=== PATIENT | male | born 1965 | race Caucasian/White ===

== ENCOUNTER 2016-11-22 10:09 | Day surgery (SDC) | payer BC, OTHER ==
[~2016-11-22] VITALS: Ht 172.7 cm; Wt 99.3 kg
[~2016-11-22 10:09] MED LIST: ACET-76 PO; ACET325T14 PO; ALPR1TAB2 PO; ARIP2TAB PO; ASPI-515 PO; ATEN50TA41 PO; BACL-19 PO; BACL20TA PO; BISA10SU65 PR; BUPR150T20 PO; BUPR150T73 PO; BUSP10TA PO; CAL MAG ZINC PO; CHOL100011 PO; FURO-92 PO; GABA-826 PO; HYDR20TA PO; IBUP-1 PO; LURA20TA PO; MAG OX PO; OXYC-302 PO; OXYC10TA6 PO; OXYC1TAB9 PO; POLY17PO5 PO; POTA10TA5 PO; PREG75CA PO; SIMV40TA3 PO; TAMS-11 PO; TEMA30CA PO; TIZA4TAB PO; VENL75TA PO; VITAMIN B COMPLEX PO; ZOLP10TA PO; promethazine PO
[2016-11-22] MEDS ORDERED: LACTATED RINGERS 1,000 ML IV SCH (10:34)
[2016-11-22 11:01] VITALS: BP 98/65
[2016-11-22] MEDS ORDERED: FENTANYL PF 100 MCG/2ML ONE ×2 (12:57→14:26)
[2016-11-22] MEDS ORDERED: MIDAZOLAM 1 MG/ML, 2ML ONE (12:57)
[2016-11-22] MEDS ORDERED: PROPOFOL 10 MG/ML, 20ML ONE (13:10)
[2016-11-22] MEDS ORDERED: CEFAZOLIN 1,000 MG ONE (13:10)
[2016-11-22] MEDS ORDERED: DEXAMETHASONE 4 MG/ML, 1ML ONE (13:10)
[2016-11-22] MEDS ORDERED: ONDANSETRON 2MG/ML, 2ML ONE ×2 (13:10→14:16)
[2016-11-22] MEDS ORDERED: FENTANYL PF 100 MCG/2ML IV PRN (13:30)
[2016-11-22] MEDS ORDERED: OXYcodone 5 MG/5 ML ORAL.SOL UDC PO PRN (13:30)
[2016-11-22] MEDS ORDERED: hydrALAzine 20 MG/ML, 1ML IV PRN (13:30)
[2016-11-22] MEDS ORDERED: ACETAMINOPHEN 325 MG TABLET PO PRN (13:30)
[2016-11-22] MEDS ORDERED: PROMETHAZINE 25 MG/ML, 1ML IV PRN (13:30)
[2016-11-22] MEDS ORDERED: HYDROmorphone 1 MG/ML, 1ML IV PRN (13:30)
[2016-11-22] MEDS ORDERED: METOCLOPRAMIDE 5 MG/ML, 2ML IV PRN (13:30)
[2016-11-22] MEDS ORDERED: LABETALOL 5MG/ML, 20ML IV PRN (13:30)
[2016-11-22] MEDS ORDERED: ONDANSETRON 2MG/ML, 2ML IVPush PRN (13:30)
[2016-11-22] MEDS ORDERED: ACETAMINOPHEN 325 MG/10.15 ML UDC ONE (14:06)
[2016-11-22] MEDS ORDERED: OXYcodone 5 MG/5 ML ORAL.SOL UDC ONE (14:06)
[2016-11-22] MEDS ORDERED: ACETAMINOPHEN 650 MG/20.3 ML UDC ONE (14:06)
== END 2016-11-22 16:20 ==
LOC: OUT 10:09
PROVIDERS: ATTEND Orthopaedic Surgery
DX: T84.84XA Pain due to internal orthopedic prosthetic devices, implants and grafts, initial encounter (principal); I25.10 Atherosclerotic heart disease of native coronary artery without angina pectoris; I10 Essential (primary) hypertension; Z88.8 Allergy status to other drugs, medicaments and biological substances; Y83.8 Other surgical procedures as the cause of abnormal reaction of the patient, or of later complication, without mention of misadventure at the time of the procedure; Y92.89 Other specified places as the place of occurrence of the external cause
CPT/HCPCS: 20680; 73600; 76000; 93005; J0690; J1100; J2250; J2405; J2704; J3010; J3490; J7120